=== PATIENT | female | born 1935 | race Caucasian/White ===

== ENCOUNTER 2018-07-11 16:34 | Emergency (ER) | payer MEDICARE ==
[2018-07-11 17:08] VITALS: BP 147/52
--- NOTE | 2018-07-11 17:27 | UC ---
Respiratory Complaint HPI - HPI Summary HPI Summary: Pt presents with c/o nasal and chest congestion, cough X 2 weeks. denies fever or chills. - History of Current Complaint Chief Complaint: UCRespiratory Stated Complaint: COUGH,LOSS OF APPETITE Time Seen by Provider: 07/11/18 17:13 Hx Obtained From: Patient Hx Last Menstrual Period: n/a ?: No Onset/Duration: Gradual Onset, Lasting Weeks, Still Present Timing: Intermittent Episodes Severity Initially: Mild Severity Currently: Mild Pain Intensity: 0 Character: Cough: Nonproductive Aggravating Factors: Deep Breaths, Recumbent Position Alleviating Factors: Nothing Associated Signs And Symptoms: Positive: URI, Nasal Congestion - Risk Factors Pulmonary Embolism Risk Factors: Negative Cardiac Risk Factors: Hypertension Pseudomonas Risk Factors: Negative Tuberculosis Risk Factors: Negative - Allergies/Home Medications Allergies/Adverse Reactions: Allergies Allergy/AdvReac Type Severity Reaction Status Date / Time No Known Allergies Allergy Verified 07/11/18 17:05 Home Medications: Home Medications Levothyroxine TAB* [Synthroid 88 MCG TAB*] 88 mcg PO DAILY 07/11/18 [History Confirmed 07/11/18] Losartan TAB* [Cozaar TAB*] 100 mg PO DAILY 07/11/18 [History Confirmed 07/11/18 ] Metoprolol Tartrate TAB* [Lopressor TAB*] 25 mg PO DAILY 07/11/18 [History Confirmed 07/11/18] Simvastatin 20 mg PO DAILY 07/11/18 [History Confirmed 07/11/18] amLODIPine TAB* [Norvasc 5 mg TAB*] 10 mg PO DAILY 07/11/18 [History Confirmed 07/11/18] PMH/Surg Hx/FS Hx/Imm Hx Previously Healthy: Yes Cardiovascular History: Hypertension - Surgical History Surgical History: Yes Surgery Procedure, Year, and Place: Cholecystectomy, 2011, [place]; Tubal Ligation - Family History Known Family History: Positive: Hypertension - Social History Occupation: Retired Lives: Alone Alcohol Use: None Substance Use Type: None Smoking Status (MU): Never Smoked Tobacco Have You Smoked in the Last Year: No - Immunization History Most Recent Influenza Vaccination: January 2017 Most Recent Pneumonia Vaccination: 2015 Review of Systems All Other Systems Reviewed And Are Negative: Yes Constitutional: Positive: Fatigue Skin: Positive: Negative Eyes: Positive: Negative ENT: Positive: Nasal Discharge, Sinus Congestion Respiratory: Positive: Cough Cardiovascular: Positive: Negative Gastrointestinal: Positive: Negative Genitourinary: Positive: Negative Motor: Positive: Negative Neurovascular: Positive: Negative Musculoskeletal: Positive: Negative Neurological: Positive: Negative Psychological: Positive: Negative Is Patient Immunocompromised?: No Physical Exam Triage Information Reviewed: Yes Appearance: Well-Appearing Vital Signs: Initial Vital Signs Temp 99 F 07/11/18 17:06 Pulse 73 07/11/18 17:06 Resp 20 07/11/18 17:06 BP 147/52 07/11/18 17:06 Pulse Ox 99 07/11/18 17:06 Vital Signs Reviewed: Yes Eye Exam: Normal ENT: Positive: Nasal congestion Dental Exam: Normal Neck exam: Normal Respiratory Exam: Normal Respiratory: Positive: Normal breath sounds Cardiovascular Exam: Normal Musculoskeletal Exam: Normal Neurological Exam: Normal Psychological Exam: Normal Skin Exam: Normal Respiratory Course/Dx - Differential Dx/Diagnosis Differential Diagnosis/HQI/PQRI: Bronchitis, Influenza Provider Diagnosis: Allergic rhinitis, Cough Discharge - Sign-Out/Discharge Documenting (check all that apply): Patient Departure All imaging exams completed and their final reports reviewed: No Studies - Discharge Plan Condition: Stable Disposition: HOME Prescriptions: Cetirizine* [ZyrTEC 10 MG TAB*] 10 mg PO DAILY #10 tab guaiFENesin ER TAB [Mucinex*] 600 mg PO Q12H #14 tab.er predniSONE TAB* [Deltasone 10 MG TAB*] 30 mg PO DAILY #12 tab Patient Education Materials: Allergic Rhinitis (ED), Acute Cough (ED) Referrals: Selene Jamil MD [Primary Care Provider] - If Needed - Billing Disposition and Condition Condition: STABLE Disposition: Home - Attestation Statements Provider Attestation: Per institutional requirements, I have reviewed the chart, however, I was not consulted specifically or made aware of this patient by the midlevel provider. I did not personally evaluate, interact with , or disposition this patient.
== END 2018-07-11 17:41 | disposition home or self-care (01) ==
LOC: UCCORT 16:34
DX: J30.9 Allergic rhinitis, unspecified (principal); R05 Cough; I10 Essential (primary) hypertension
CPT/HCPCS: 99212; G0463

== ENCOUNTER 2018-07-19 08:25 | Emergency (ER) | payer MEDICARE ==
[2018-07-19 09:09] VITALS: BP 145/57
--- NOTE | 2018-07-19 10:12 | ED ---
GI/ HPI - HPI Summary HPI Summary: 82 yr old female with the complaint of left flank pain for about four days. No fever, chills or urinary symptoms. Pain is moderate, and not made worse with anything. She has no falls or injuries. - History of Current Complaint Chief Complaint: UCBackPain Time Seen by Provider: 07/19/18 09:10 Stated Complaint: LOWER LEFT SIDE PAIN X 4 DAYS Hx Last Menstrual Period: n/a Pain Intensity: 6 - Allergy/Home Medications Allergies/Adverse Reactions: Allergies Allergy/AdvReac Type Severity Reaction Status Date / Time No Known Allergies Allergy Verified 07/19/18 09:05 PMH/Surg Hx/FS Hx/Imm Hx Endocrine/Hematology History: Reports: Hx Diabetes - metformin, Hx Thyroid Disease - Hypothyroidism Cardiovascular History: Reports: Hx Hypertension Musculoskeletal History: Denies: Hx Osteoporosis - Surgical History Surgery Procedure, Year, and Place: Cholecystectomy, 2011, [place]; Tubal Ligation Infectious Disease History: No Infectious Disease History: Denies: Traveled Outside the [place] in Last 30 Days - Family History Known Family History: Positive: Hypertension - Social History Occupation: Retired Lives: With Family Alcohol Use: None Substance Use Type: Reports: None Smoking Status (MU): Never Smoked Tobacco Have You Smoked in the Last Year: No Review of Systems Constitutional: Negative Positive: flank pain All Other Systems Reviewed And Are Negative: Yes Physical Exam Triage Information Reviewed: Yes Vital Signs On Initial Exam: Initial Vitals Temp Pulse Resp BP Pulse Ox 98 F 70 16 145/57 100 07/19/18 09:02 07/19/18 09:02 07/19/18 09:02 07/19/18 09:02 07/19/18 09:02 Vital Signs Reviewed: Yes Appearance: Positive: Well-Appearing, No Pain Distress Skin: Positive: Warm, Skin Color Reflects Adequate Perfusion Head/Face: Positive: Normal Head/Face Inspection Eyes: Positive: EOMI ENT: Positive: Normal ENT inspection Neck: Positive: Nontender Respiratory/Lung Sounds: Positive: Clear to Auscultation, Breath Sounds Present Cardiovascular: Positive: RRR. Negative: Murmur Abdomen Description: Positive: Nontender. Negative: Distended Musculoskeletal: Positive: Strength/ROM Intact Neurological: Positive: Sensory/Motor Intact, Alert, Oriented to Person Place, Time, CN Intact II-III, Normal Gait, Speech Normal Psychiatric: Positive: Normal Diagnostics - Vital Signs Vital Signs Temp Pulse Resp BP Pulse Ox 07/19/18 09:02 98 F 70 16 145/57 100 - Laboratory Lab Results: Lab Results 07/19/18 Range/Units 09:16 POC Urine Color Yellow POC Urine Clarity Slightly cloudy POC Urine pH 6.0 (5-9) POC Ur Specif Felda 1.015 (1.010-1.030) POC Urine Protein Negative (Negative) POC Ur Glucose (UA) Negative (Negative) POC Urine Ketones Negative (Negative) POC Urine Blood Negative (Negative) POC Urine Nitrite Negative (Negative) POC Urine Bilirubin Negative (Negative) POC Urine Urobilinogen 0.2 (Negative) POC U Leukocyte Esteras 1+ A (Negative) Lab Statement: Any lab studies that have been ordered have been reviewed, and results considered in the medical decision making process. GIGU Course/Dx - Course Course Of Treatment: 82 yr old with UTI. CT scan neg for stone on the left, but she has stone on the right. - Diagnoses Provider Diagnoses: UTI (urinary tract infection), Flank pain, Hypertension Discharge - Sign-Out/Discharge Documenting (check all that apply): Patient Departure All imaging exams completed and their final reports reviewed: No Studies - Discharge Plan Condition: Good Disposition: HOME Prescriptions: Cephalexin CAP* [Keflex CAP*] 500 mg PO TID #30 cap Patient Education Materials: Urinary Tract Infection in Women (ED), Hypertension (ED), Flank Pain (ED) Referrals: Selene Jamil MD [Primary Care Provider] - 2 Days - Billing Disposition and Condition Condition: GOOD Disposition: Home
--- NOTE | 2018-07-21 10:11 | UC ---
- Progress Note Progress Note: urine cx neg. dc keflex Course/Dx - Diagnoses Provider Diagnoses: UTI (urinary tract infection), Flank pain, Hypertension Discharge - Sign-Out/Discharge Documenting (check all that apply): Post-Discharge Follow Up All imaging exams completed and their final reports reviewed: No Studies - Discharge Plan Condition: Good Disposition: HOME Prescriptions: Cephalexin CAP* [Keflex CAP*] 500 mg PO TID #30 cap Patient Education Materials: Urinary Tract Infection in Women (ED), Hypertension (ED), Flank Pain (ED) Referrals: Selene Jamil MD [Primary Care Provider] - 2 Days - Billing Disposition and Condition Condition: GOOD Disposition: Home
== END 2018-07-19 10:18 | disposition home or self-care (01) ==
LOC: UCCORT 08:25
DX: N39.0 Urinary tract infection, site not specified (principal); R10.32 Left lower quadrant pain; I10 Essential (primary) hypertension; E11.9 Type 2 diabetes mellitus without complications; Z79.84 Long term (current) use of oral hypoglycemic drugs
CPT/HCPCS: 74176; 81003; 87086; 99212; G0463

== ENCOUNTER 2019-03-06 10:04 | Emergency (ER) | payer MEDICARE ==
--- OUTSIDE RECORDS SUMMARY | 2019-03-06 10:37 | XMS REPORT | Continuity of Care Document ---
:1935 External Reference #:[id number] Author Name Deidra Leyva FNP (transmitted by agent of provider Kiera Brody) Address [address] [place] [id number] Care Team Providers Name Role Phone Angela Oliver MD - Care Team Information Digital Marketing Associate [phone] Ophthalmology Selene Jamil MD - Internal Medicine Care Team Information Digital Marketing Associate Problems Description No Active Problems Social History Type Date Description Comments Sex Unknown Tobacco Use Start: Unknown Never Smoked Cigarettes ETOH Use Denies alcohol use Tobacco Use Start: Unknown Patient has never smoked Smoking Status Reviewed: 03/01/19 Patient has never smoked Allergies, Adverse Reactions, Alerts Description No Known Drug Allergies Medications Active Medications SIG Qnty Indications Ordering Provider Date Levothyroxine Sodium 1 po qd Unknown 88mcg Tablets Lisinopril 1 po qd 90tabs Unknown 20mg Tablets Calcium 600 + D po bid Unknown [id number] Tablets Atenolol 1 po qd 30tabs Unknown 100mg Tablets Simvastatin 1 po qd 30tabs Unknown 10mg Tablets Multiple Vitamins Daily Unknown Tablets Aspirin 1 po qd Unknown 81mg Tablets DR Amlodipine Besylate 1 po qd 30tabs Unknown 5mg Tablets Metformin HCL Take 1 Tablet Unknown 500mg Tablets By Mouth Once Daily Immunizations Description No Information Available Vital Signs Date Vital Result Comment 03/01/2019 10:33am BP Systolic 147 mmHg BP Diastolic 63 mmHg Body Temperature 97.8 F Heart Rate 70 /min Respiratory Rate 18 /min Height 59 inches 4'11" Weight 146.50 lb BMI (Body Mass Index) 29.6 kg/m2 BSA (Body Surface Area) 1.62 m2 [place] body weight in kilograms 45 kg O2 % BldC Oximetry 98 % Pain Level 6 Lt Knee 03/19/2012 2:30pm BP Systolic Sitting Left Arm 139 mmHg BP Diastolic Sitting Left Arm 59 mmHg Heart Rate 53 /min Height 59 inches 4'11" Weight 140.00 lb BMI (Body Mass Index) 28.3 kg/m2 Results Description No Information Available Procedures Date Code Description Status 04/24/2010 [id number] Bone Mineral Density Test Completed 04/24/2010 [id number] Mammogram Completed Medical Devices Description No Information Available Encounters Type Date Location Provider Dx Diagnosis Office Visit 03/01/2019 [facility] M25.562 Pain in left knee 10:15a [facility] Assessments Date Code Description Provider 03/01/2019 M25.562 Pain in left knee Deidra Leyva FNP Plan of Treatment 03/01/2019 - Deidra Leyva, [id number] Pain in left kneeComments: Elevate when possible. Wear splint regularly for the next week. Rest, Apply Ice or cool compress 5-10 minutes 3-4 times per day, and use OTC NSAIDs such as naproxen or Ibuprofen as needed.Followup with your primary physician in 5-7 days for recheck, sooner if new or worsening symptoms occur. Functional Status Functional Condition Comment Date Status Bifocal glasses for reading Active Mental Status Description No Information Available Referrals Description No Information Available
[2019-03-06 11:01] VITALS: BP 160/55
--- NOTE | 2019-03-06 11:46 | UC ---
Lower Extremity/Ankle HPI - HPI Summary HPI Summary: 83 year old female with h/o OA right knee, s/p partial replacement, presents with increased pain to posterior left knee, full feeling, with this AM lateral "funny feeling" like cramping to calf. + pain with ambulation. DOes not like taking medications, has not tried motrin/ alleve. - History of Current Complaint Chief Complaint: UCLowerExtremity Stated Complaint: LEFT KNEE PAIN Time Seen by Provider: 03/06/19 11:32 Hx Obtained From: Patient Hx Last Menstrual Period: n/a ?: Yes Onset/Duration: Sudden Onset Severity Initially: Moderate Severity Currently: Moderate Pain Intensity: 6 Pain Scale Used: 0-10 Numeric Aggravating Factor(s): Standing, Ambulation Alleviating Factor(s): Rest Able to Bear Weight: Yes - Allergies/Home Medications Allergies/Adverse Reactions: Allergies Allergy/AdvReac Type Severity Reaction Status Date / Time No Known Allergies Allergy Verified 03/06/19 10:53 Home Medications: Home Medications Calcium Carbonate [Calcium] 500 mg PO DAILY 03/06/19 [History Confirmed 03/06/19 ] Metformin HCl [Glucophage Xr] 500 mg PO DAILY 03/06/19 [History Confirmed ] Multivit with Minerals No.55 [Centrum Flavor Burst Kids] 1 tab PO DAILY [History Confirmed 03/06/19] Melvin-3 Fatty Acids/Fish Oil [Fish Oil 1,000 mg Softgel] 1 cap PO DAILY [History Confirmed 03/06/19] PMH/Surg Hx/FS Hx/Imm Hx Previously Healthy: Yes - Surgical History Surgical History: Yes Surgery Procedure, Year, and Place: Cholecystectomy, 2011, [place]; Tubal Ligation, partial knee replacement on right - Family History Known Family History: Positive: Hypertension - Social History Alcohol Use: None Substance Use Type: None Smoking Status (MU): Never Smoked Tobacco Have You Smoked in the Last Year: No - Immunization History Most Recent Influenza Vaccination: January 2017 Most Recent Pneumonia Vaccination: 2015 Review of Systems All Other Systems Reviewed And Are Negative: Yes Musculoskeletal: Positive: Arthralgia, Calf Tenderness, Myalgia Neurological: Positive: Negative Is Patient Immunocompromised?: No Physical Exam Triage Information Reviewed: Yes Appearance: Well-Appearing, Well-Nourished, Pain Distress - mild with movement, none at rest Vital Signs: Initial Vital Signs Temp 97.3 F 03/06/19 10:57 Pulse 66 03/06/19 10:57 Resp 20 03/06/19 10:57 BP 160/55 03/06/19 10:57 Pulse Ox 100 03/06/19 10:57 Eye Exam: Normal Eyes: Positive: Conjunctiva Clear ENT: Positive: Hearing grossly normal Musculoskeletal: Positive: Strength Intact - knee flexion/ extension abd/ add = b/l., ROM Intact - 0=120 without difficulty, No Edema, Other: - left knee: - ACL/ PCL testing, + pes tenderness, + TTP over IT band from tib plat to mid thigh, - yanira testing b/l, ++ TTP over lateral> medial joint line Neurological: Positive: Alert, Muscle Tone Normal, Other: - SITLT distal to left knee. Psychological Exam: Normal Psychological: Positive: Normal Response To Family Skin Exam: Normal Lower Extremity Course/Dx - Course Course Of Treatment: Left knee Pain, likely due to osteoarthritis flare up and/ or meniscal tear, lateral - Naproxen twice daily, every 12 hours, for 2-3 days to decrease swelling, help with pain. - Rest, Ice/ Heat as tolerated - Follow up with Dr. David within 2-3 days if no improvement - REturn with increased calf pain, shortness of breath, increased pain with walking. - Differential Dx/Diagnosis Differential Diagnosis/HQI/PQRI: Arthritis, Infection, Sprain, Strain, Tendonitis, Tenosynovitis Provider Diagnosis: Knee pain, left Discharge ED - Sign-Out/Discharge Documenting (check all that apply): Patient Departure All imaging exams completed and their final reports reviewed: Yes - Discharge Plan Condition: Good Disposition: HOME Prescriptions: Naproxen [Naproxen 250 mg tab] 250 mg PO BID #60 tablet Patient Education Materials: Knee Pain (ED), Meniscus Tear (ED), Bakers Cyst ( ED) Referrals: Selene Jamil MD [Primary Care Provider] - Darian David MD [Medical Doctor] - (Follow up in 2-3 days if no improvement for possible steroid injection ) Additional Instructions: Left knee Pain, likely due to osteoarthritis flare up and/ or meniscal tear, lateral - Naproxen twice daily, every 12 hours, for 2-3 days to decrease swelling, help with pain. - Rest, Ice/ Heat as tolerated - Follow up with Dr. David within 2-3 days if no improvement - REturn with increased calf pain, shortness of breath, increased pain with walking. - Billing Disposition and Condition Condition: GOOD Disposition: Home
== END 2019-03-06 12:41 | disposition home or self-care (01) ==
LOC: UCCORT 10:04
DX: M25.562 Pain in left knee (principal); Z96.651 Presence of right artificial knee joint
CPT/HCPCS: 99212; G0463